=== PATIENT | male | born 1995 | race African-American/Black ===

== ENCOUNTER 2017-01-21 01:28 | Emergency (ER) | payer SELFPAY ==
[2017-01-21] MEDS ORDERED: diPHENhydraMINE PO* 25 MG PO ONE (01:48)
[2017-01-21] MEDS ORDERED: Acetaminophen TAB* 325 MG PO ONE (01:48)
[2017-01-21] MEDS ORDERED: Ondansetron ODT TAB* 4 MG SL ONE (01:50)
--- NOTE | 2017-01-21 01:50 | ED ---
Throat Pain/Nasal Congestion - HPI Summary HPI Summary: Patient presents to ED with CC of sore throat, nasal congestion and cough. Cough is nonproductive. He endorses enlarged tonsils, but denies difficulty swallowing. He notes to some nausea, but none currently. He denies CLEMENTE. He endorses body aches a few days ago, but these have dissipated. He is otherwise healthy. He did not receive the flu shot this year. Denies sick contacts. - History of Current Complaint Chief Complaint: EDGeneral Time Seen by Provider: 01/21/17 01:46 Hx Obtained From: Patient Onset/Duration: Gradual Onset Severity: Moderate Associated Signs And Symptoms: Positive: Hoarseness, Sinus Discomfort, Nasal Discharge Cough: Nonproductive Related History: Seasonal Allergies - Epiglottits Risk Factors Epiglottis Risk Factors: Negative - Allergies/Home Medications Allergies/Adverse Reactions: Allergies Allergy/AdvReac Type Severity Reaction Status Date / Time No Known Allergies Allergy Verified 11/11/15 11:41 PMH/Surg Hx/FS Hx/Imm Hx Previously Healthy: Yes - Immunization History Hx Pertussis Vaccination: No Immunizations Up to Date: No Infectious Disease History: Yes Infectious Disease History: Denies: History Other Infectious Disease, Traveled Outside the [place] in Last 30 Days - Family History Family History: NON CONTRIBUTORY - Social History Occupation: Employed Full-time Lives: With Family Alcohol Use: Weekly Hx Substance Use: No Substance Use Type: Reports: None Hx Tobacco Use: Yes Smoking Status (MU): Light Every Day Tobacco Smoker Type: Cigarettes Amount Used/How Often: couple a day Review of Systems Constitutional: Negative Eyes: Negative Positive: Sore Throat, Nasal Discharge Cardiovascular: Negative Positive: Cough Positive: Nausea Positive: no symptoms reported, see HPI Musculoskeletal: Negative Neurological: Negative Psychological: Normal All Other Systems Reviewed And Are Negative: Yes Physical Exam Triage Information Reviewed: Yes Vital Signs On Initial Exam: Initial Vitals Temp Pulse Resp BP Pulse Ox 99.4 F 65 18 148/87 100 01/21/17 01:32 01/21/17 01:32 01/21/17 01:32 01/21/17 01:32 01/21/17 01:32 Vital Signs Reviewed: Yes Appearance: Positive: Well-Appearing, Well-Nourished Skin: Positive: Warm, Skin Color Reflects Adequate Perfusion Head/Face: Positive: Normal Head/Face Inspection Eyes: Positive: JONATHAN, Conjunctiva Clear ENT: Positive: Nasal congestion, TMs normal, Tonsillar swelling Respiratory/Lung Sounds: Positive: Clear to Auscultation, Breath Sounds Present Cardiovascular: Positive: Normal, RRR, Pulses are Symmetrical in both Upper and Lower Extremities Musculoskeletal: Positive: Normal, Strength/ROM Intact Neurological: Positive: Sensory/Motor Intact, Speech Normal Psychiatric: Positive: Normal AVPU Assessment: Alert Diagnostics - Vital Signs Vital Signs Temp Pulse Resp BP Pulse Ox 01/21/17 01:35 99.4 F 64 18 148/67 100 01/21/17 01:32 99.4 F 65 18 148/87 100 - Laboratory Lab Statement: Any lab studies that have been ordered have been reviewed, and results considered in the medical decision making process. EENT Course/Dx - Course Course Of Treatment: Rapid strep sent. Negative. Tylenol and Benadryl given in ED. Prescription for Claritin sent to pharmacy. - Differential Diagnoses Differential Diagnoses: Sinusitis, URI/Bronchitis - Diagnoses Provider Diagnoses: Upper respiratory infection
[2017-01-21 02:50] VITALS: BP 129/83
[2017-01-21] MEDS ORDERED: Penicillin VK TAB* 250 MG PO ONE (03:12)
== END 2017-01-21 02:56 | disposition home or self-care (01) ==
LOC: ED 01:28
DX: J06.9 Acute upper respiratory infection, unspecified (principal); J02.9 Acute pharyngitis, unspecified; F17.210 Nicotine dependence, cigarettes, uncomplicated
CPT/HCPCS: 87651; 99282; A9270-GY

== ENCOUNTER 2018-02-12 21:20 | Emergency (ER) | payer SELFPAY ==
[2018-02-12 21:31] VITALS: BP 153/88
[2018-02-12] MEDS ORDERED: Ibuprofen TAB* 800 MG PO ONE (23:08)
[2018-02-12] MEDS ORDERED: Diazepam TAB(*) 5 MG PO ONE (23:08)
--- NOTE | 2018-02-12 23:23 | ED ---
Upper Extremity Pain - HPI Summary HPI Summary: [id number] patient presents with laceration to the right second MCP joint while washing dishes tonight. Reports he shoved his hand into a glass and realized his hand was too large causing the glass to break and cutting himself. This is a clean wound. Bleeding has stopped. Denies numbness tingling or weakness. Immunizations are up-to-date. 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 - Allergies/Home Medications Allergies/Adverse Reactions: Allergies Allergy/AdvReac Type Severity Reaction Status Date / Time No Known Allergies Allergy Verified 11/11/15 11:41 PMH/Surg Hx/FS Hx/Imm Hx Previously Healthy: Yes Endocrine/Hematology History: Denies: Hx Anticoagulant Therapy, Hx Diabetes, Autoimmune Disease - Immunization History Immunizations Up to Date: Yes Infectious Disease History: No Infectious Disease History: Denies: Hx of Known/Suspected MRSA, History Other Infectious Disease, Traveled Outside the in Last 30 Days - Family History Known Family History: Positive: None - Social History Occupation: Employed Full-time - long-term Lives: With Family Alcohol Use: Weekly Hx Substance Use: No Substance Use Type: Reports: None Hx Tobacco Use: Yes Smoking Status (MU): Light Every Day Tobacco Smoker Type: Cigarettes Amount Used/How Often: couple a day Review of Systems Constitutional: Negative Musculoskeletal: Negative Skin: Other - lac Neurological: Negative Positive: Anxious All Other Systems Reviewed And Are Negative: Yes Physical Exam Triage Information Reviewed: Yes Vital Signs On Initial Exam: Initial Vitals Temp Pulse Resp BP Pulse Ox 98.1 F 87 20 153/88 100 02/12/18 21:29 02/12/18 21:29 02/12/18 21:29 02/12/18 21:29 02/12/18 21:29 Vital Signs Reviewed: Yes Appearance: Positive: Well-Appearing, Well-Nourished, Pain Distress Skin: Positive: Warm, Skin Color Reflects Adequate Perfusion - laceration over dorsal Rt 2nd MCP joint and up along dorsum of finger - muscle and tendon observed Head/Face: Positive: Normal Head/Face Inspection Eyes: Positive: EOMI ENT: Positive: Hearing grossly normal Respiratory/Lung Sounds: Positive: Breath Sounds Present Cardiovascular: Positive: Pulses are Symmetrical in both Upper and Lower Extremities Musculoskeletal: Positive: Strength/ROM Intact, Pain @ - pt flinches w/ any palpation of this digit, even in areas without lac/injury Neurological: Positive: Sensory/Motor Intact, Alert, Oriented to Person Place, Time, CN Intact II-III Psychiatric: Positive: Anxious Procedures - Laceration/Wound Repair 1 Location: upper extremity Description: Linear Anesthesia: Local, 1.0%, Lido Length, Depth and Shape: 5cm x 3mm (flap along lateral aspect) Betadine Prep?: Yes Irrigated w/ Saline (ccs): 250 Laceration/Wound Explored: clean Closure: Single Layer Suture Type: Other - ethilon 5-0 Number of Sutures: 9 Layer Closure?: No Sterile Dressing Applied?: Yes - triple anbx + gauze+ AMADOR -hemodynamically stable Diagnostics - Vital Signs Vital Signs Temp Pulse Resp BP Pulse Ox 02/12/18 21:29 98.1 F 87 20 153/88 100 - Laboratory Lab Statement: Any lab studies that have been ordered have been reviewed, and results considered in the medical decision making process. Course/Dx - Course Course Of Treatment: Delayed wound closure d/t pt's strong fear of pain and needles. Wound eventually anesthetized and ultimately closed without difficulty. Education about wound care provided. Pt does not have insurance - will return to ED for suture removal. - Diagnoses Provider Diagnoses: Hand laceration Discharge - Sign-Out/Discharge Documenting (check all that apply): Discharge/Admit/Transfer - Discharge Plan Condition: Stable Disposition: HOME Patient Education Materials: Laceration (ED), Care For Your Stitches (ED) Referrals: No Primary Care Phys,NOPCP [Primary Care Provider] - [facility] [Outside] Additional Instructions: Keep Dressing clean and dry and in place for the next 48 hours. After that time you may remove dressing, gently wash wound with soap and water, rinse well and pat dry with clean cloth. Reapply triple antibiotic ointment and clean gauze dressing. Continue this daily until sutures are removed. Call your PCP to schedule wound recheck and suture removal in 10-14 days or return to ED for suture removal. Rest (do not lift, health informatics instructor, carry, squeeze, etc), ice and elevate to prevent pain/ swelling. You may take ibuprofen 800mg every 8 hours with food alternating with acetaminophen 650mg every 6 hours as needed for pain * If you develop redness, swelling, streaking, purulent drainage, fevers or chills, seek medical attention sooner or return to the emergency department. - Billing Disposition and Condition Condition: STABLE Disposition: HOME
[2018-02-13] MEDS ORDERED: Lidocaine 1% INJ* 10 MG/ML 30 ML SDV ONE (00:46)
--- NOTE | 2018-02-13 08:04 | RAD ---
INDICATION: Right hand injury. TECHNIQUE: 4 views of the right hand were obtained. FINDINGS: There is soft tissue swelling and soft tissue defect in the second finger. There is bandage material overlying this region limiting the study. No fracture or radiopaque foreign body is seen. IMPRESSION: LIMITED STUDY, NO EVIDENCE FOR FRACTURE OR REPEAT FOREIGN BODY.
== END 2018-02-13 02:29 | disposition home or self-care (01) ==
LOC: ED 21:20
DX: S61.210A Laceration without foreign body of right index finger without damage to nail, initial encounter (principal); W25.XXXA Contact with sharp glass, initial encounter; Y93.G1 Activity, food preparation and clean up; Y92.9 Unspecified place or not applicable; F17.210 Nicotine dependence, cigarettes, uncomplicated
CPT/HCPCS: 12002; 99282; A9270-GY

== ENCOUNTER 2018-07-27 18:50 | Emergency (ER) | payer SELFPAY ==
[2018-07-27] MEDS ORDERED: Ketorolac TAB * 10 MG TAB PO ONE (19:31)
--- NOTE | 2018-07-27 20:35 | ED ---
Upper Extremity Pain - HPI Summary HPI Summary: Patient complains of bilateral hand pain x a couple days, with associated sensation of cold, and color change in hands. Denies hx of same sx, trauma. Patient states he has been unable to sleep, and can hardly use his hands. However patient was observed using his phone with no issue prior to this providers arrival in exam room. Patient denies any other symptoms or injury. Medical history is none. - History of Current Complaint Chief Complaint: EDExtremityUpper Stated Complaint: BOTH HANDS INJURY Time Seen by Provider: 07/27/18 19:03 Hx Obtained From: Patient Mechanism Of Injury: Unknown Onset/Duration: Started Days Ago Timing: Constant Severity Initially: Severe Severity Currently: Severe Pain Location: Hand Character: Sharp, Aching Aggravating Factor(s): Movement Alleviating Factor(s): Nothing Associated Signs & Symptoms: Positive: Negative - Allergies/Home Medications Allergies/Adverse Reactions: Allergies Allergy/AdvReac Type Severity Reaction Status Date / Time No Known Allergies Allergy Verified 07/27/18 18:56 PMH/Surg Hx/FS Hx/Imm Hx Endocrine/Hematology History: Denies: Hx Anticoagulant Therapy, Hx Diabetes - Immunization History Immunizations Up to Date: Yes Infectious Disease History: No Infectious Disease History: Denies: Hx of Known/Suspected MRSA, History Other Infectious Disease, Traveled Outside the [place] in Last 30 Days - Family History Known Family History: Positive: None - Social History Alcohol Use: Weekly Hx Substance Use: No Substance Use Type: Reports: None Hx Tobacco Use: Yes Smoking Status (MU): Light Every Day Tobacco Smoker Type: Cigarettes Amount Used/How Often: couple a day Review of Systems Constitutional: Negative Eyes: Negative ENT: Negative Cardiovascular: Negative Respiratory: Negative Gastrointestinal: Negative Genitourinary: Negative Musculoskeletal: Other Skin: Negative Neurological: Negative Psychological: Normal All Other Systems Reviewed And Are Negative: Yes Physical Exam - Summary Physical Exam Summary: Full range of motion of fingers of bilateral hands and bilateral wrists. No evidence of ecchymosis, swelling, erythema, extra warmth, deformity noted to bilateral hands. Cap refill immediate bi laterally. PMS intact bilaterally. Triage Information Reviewed: Yes Vital Signs On Initial Exam: Initial Vitals Temp Pulse Resp BP Pulse Ox 98.5 F 69 16 169/95 99 07/27/18 18:52 07/27/18 18:52 07/27/18 18:52 07/27/18 18:52 07/27/18 18:52 Vital Signs Reviewed: Yes Appearance: Positive: Well-Appearing Skin: Positive: Warm Head/Face: Positive: Normal Head/Face Inspection Eyes: Positive: Normal Neck: Positive: Supple Respiratory/Lung Sounds: Positive: Clear to Auscultation Cardiovascular: Positive: Normal Abdomen Description: Positive: Nontender Musculoskeletal: Positive: Normal Neurological: Positive: Normal Psychiatric: Positive: Normal AVPU Assessment: Alert - Erin Coma Scale Best Eye Response: 4 - Spontaneous Best Motor Response: 6 - Obeys Commands Best Verbal Response: 5 - Oriented Coma Scale Total: 15 Diagnostics - Vital Signs Vital Signs Temp Pulse Resp BP Pulse Ox 07/27/18 18:52 98.5 F 69 16 169/95 99 - Laboratory Lab Statement: Any lab studies that have been ordered have been reviewed, and results considered in the medical decision making process. Course/Dx - Course Course Of Treatment: Patient complains of bilateral hand pain x a couple days, with associated sensation of cold, and color change in hands. Denies hx of same sx, trauma. Patient states he has been unable to sleep, and can hardly use his hands. However patient was observed using his phone with no issue prior to this providers arrival in exam room. Patient denies any other symptoms or injury. Medical history is none. Physical exam:Full range of motion of fingers of bilateral hands and bilateral wrists. No evidence of ecchymosis, swelling, erythema, extra warmth, deformity noted to bilateral hands. Cap refill immediate bi laterally. PMS intact bilaterally. Vital signs within normal limits. X-ray of bilateral hands negative for acute process. Trial of ibuprofen and ice. Follow-up with orthopedics if symptoms persist. - Diagnoses Differential Diagnosis/HQI/PQRI: Positive: Arthritis, Fracture (Closed), Strain , Sprain Provider Diagnoses: Bilateral hand pain Discharge - Sign-Out/Discharge Documenting (check all that apply): Patient Departure - Discharge Plan Condition: Stable Disposition: HOME Prescriptions: Ibuprofen TAB* [Motrin TAB* 800 MG] 800 mg PO Q8H 5 Days #15 tab Patient Education Materials: Arthralgia (ED) Referrals: No Primary Care Phys,NOPCP [Primary Care Provider] - Eduar Dorado MD [Medical Doctor] - Additional Instructions: Take ibuprofen 800 mg 3 times a day for 4 days. If pain persists follow-up with orthopedics Dr. Brumfield. - Billing Disposition and Condition Condition: STABLE Disposition: Home
[2018-07-27 20:45] VITALS: BP 0/0
== END 2018-07-27 20:43 | disposition home or self-care (01) ==
LOC: ED 18:50
DX: M79.642 Pain in left hand (principal); M79.641 Pain in right hand; F17.210 Nicotine dependence, cigarettes, uncomplicated
CPT/HCPCS: 99282